=== PATIENT | male | born 1975 | race Caucasian/White ===

== ENCOUNTER 2021-01-20 01:43 | Emergency (ER) | payer OTHER, SELFPAY ==
--- NOTE | ~2021-01-20 | XR_ITS ---
EXAMINATION: XR heel RT min 2V INDICATION: Right heel pain TECHNIQUE: Two views of the calcaneus are obtained. COMPARISON: None available FINDINGS: There is no fracture, dislocation, or subluxation. The bones, soft tissues, and joint space s are normal. IMPRESSION: 1. No acute osseous abnormality. Reviewed, dictated and finalized at location A.
--- NOTE | ~2021-01-20 | XR_ITS ---
EXAMINATION: XR foot RT min 3V DATE: 01/20/2021 02:28 INDICATION: Right foot pain TECHNIQUE: Dorsoplantar, lateral, and 2 oblique views of the right foot were obtained. COMPARISON: None. FINDINGS: There is no fracture, dislocation, or subluxation. The bones, soft tissues, and joint space s are normal. IMPRESSION: 1. No acute osseous abnormality. Reviewed, dictated and finalized at location A.
[2021-01-20 01:46] VITALS: BP 138/79; PULSE 104; RESP 20; TEMP 37; O2SAT 98
--- NOTE | 2021-01-20 02:59 | ED.GENADULT ---
HPI - General Adult General Chief complaint: Extremity Injury, Lower Stated complaint: Right heel pain s/p fall. Time Seen by Provider: 01/20/21 02:21 History of Present Illness HPI narrative: Patient is a 45-year-old gentleman who presents the emergency department with chief complaint of right heel pain. Patient states that he was at a hotel walking down the steps slipped and struck his heel against one of the steps. Patient states that it became bruised reports it hurts whenever he tries to walk on it patient states that they did not harm himself anywhere else whenever he fell the patient denies head injury denies loss of consciousness. Related Data Home Medications Medication Instructions Recorded Confirmed No Home Medications 01/20/21 01/20/21 Allergies Allergy/AdvReac Type Severity Reaction Status Date / Time amoxicillin Allergy Hives Verified 01/20/21 01:50 Review of Systems Review of Systems: A 10 system review of systems was completed on the patient and is negative except for what is stated in the HPI. Nursing and ancillary documentation was reviewed. Exam Narrative: GENERAL: Well-appearing, well-nourished, and in no acute distress. HEAD: Normocephalic, atraumatic. EYES: PERRLA and EOMI. ENT: Nares clear, no rhinorrhea or epistaxis. Mucous membranes moist. NECK: Supple. CHEST: Clear to auscultation. No respiratory distress. HEART: Regular rate and rhythm. No murmur heard. Normal peripheral pulses. ABDOMEN: Soft, nontender, nondistended, normal active bowel sounds. EXTREMITIES: Normal range of motion. No edema. There is tenderness to palpation in the right heel there is bruising present around the calcaneus SKIN: Warm, dry, no rash. NEURO: No focal deficits. Alert and oriented x3. PSYCH: Normal mood and affect. Course Course Emergency Course: Plain film x-ray showed no evidence of obvious displaced fracture Vital Signs Vital signs: Vital Signs Temperature 37.0 C 01/20/21 01:46 Pulse Rate 104 H 01/20/21 01:46 Respiratory Rate 20 01/20/21 01:46 Blood Pressure 138/79 01/20/21 01:46 Pulse Oximetry 98 01/20/21 01:46 Temperature 37.0 C 01/20/21 01:46 Pulse Rate 104 H 01/20/21 01:46 Respiratory Rate 20 01/20/21 01:46 Blood Pressure 138/79 01/20/21 01:46 Pulse Oximetry 98 01/20/21 01:46 Medical Decision Making Vital Signs Vital Signs: Vital Signs Temperature 37.0 C 01/20/21 01:46 Pulse Rate 104 H 01/20/21 01:46 Respiratory Rate 01/20/21 01:46 Blood Pressure 138/79 01/20/21 01:46 Pulse Oximetry 98 01/20/21 01:46 Temperature 37.0 C 01/20/21 01:46 Pulse Rate 104 H 01/20/21 01:46 Respiratory Rate 01/20/21 01:46 Blood Pressure 138/79 01/20/21 01:46 Pulse Oximetry 98 01/20/21 01:46 Discharge Plan Discharge Clinical Impression: Contusion of right heel Qualifiers: Encounter type: initial encounter Qualified Code(s): S90.31XA - Contusion of right foot, initial encounter Patient Disposition: Home, Self-Care Condition: Stable Instructions: Antibiotic Form Prescriptions: No Action No Home Medications RF: 0 Follow-up/Referrals: PHYSICIAN,TURN MACHINE OPERATOR [Primary Care Provider] - Gary Holcomb MD [Physician] - Time of Disposition: 03:02
[2021-01-20] MEDS: HYDROcodone/acetaminophen (*CRX) 5-325 MG TABLET 1 TAB PO (03:10)
== END 2021-01-20 03:24 | disposition home or self-care (01) ==
PROVIDERS: Emergency Provider Emergency Medicine
DX: S90.31XA Contusion of right foot, initial encounter (principal); W10.9XXA Fall (on) (from) unspecified stairs and steps, initial encounter
CPT/HCPCS: 73630; 73650; 99283; A9270